=== PATIENT | female | born 1945 | race Caucasian/White ===

== ENCOUNTER 2019-07-20 08:50 | Outpatient (CLI) | payer MEDICARE, MEDICAID ==
[~2019-07-20] VITALS: Ht 157 cm; Wt 69.7 kg
[2019-07-20] MEDS ORDERED: HYDR-3820 PO (09:07)
[2019-07-20] MEDS ORDERED: MELO15TA39 PO (09:07)
[2019-07-20] MEDS ORDERED: CHOL200025 PO (09:07)
[2019-07-20] MEDS ORDERED: MONT10TA24 PO (09:07)
[2019-07-20] MEDS ORDERED: TRIA1CAP4 PO (09:07)
[2019-07-20] MEDS ORDERED: ATOR20TA66 PO (09:07)
[2019-07-20 09:11] VITALS: BP 111/58
[2019-07-20 09:49] LABS: BILIRUBIN,URINE NEGATIVE (NEGATIVE); CLARITY,URINE CLEAR; COLOR,URINE YELLOW; GLUCOSE, URINE (UA) NEGATIVE (NEGATIVE); KETONES,URINE NEGATIVE (NEGATIVE); LEUKOCYTE ESTERASE ,URINE NEGATIVE (NEGATIVE); NITRITE,URINE NEGATIVE (NEGATIVE); PROTEIN,URINE NEGATIVE (NEGATIVE)
[2019-07-20 09:51] LABS: BASOPHILS # (AUTO) 0.1 10^3/uL (0.0-0.1); BASOPHILS % (AUTO) 1 % (0-10); EOSINOPHILS # (AUTO) 0.1 10^3/uL (0.0-0.3); EOSINOPHILS % (AUTO) 2 % (0-10); HEMATOCRIT 41 % (35-52); HEMOGLOBIN 13.2 G/DL (11.5-16.0); LYMPHOCYTES # (AUTO) 2.1 X 10^3 (1.0-4.0); LYMPHOCYTES % (AUTO) 34 % (12-44); MEAN CORPUSCULAR HEMOGLOBIN 30 PG (25-34); MEAN CORPUSCULAR HGB CONC 32 G/DL (32-36); MEAN CORPUSCULAR VOLUME 93 FL (80-99); MEAN PLATELET VOLUME 9.2 FL (7.4-10.4); MONOCYTES # (AUTO) 0.4 X 10^3 (0.0-1.0); MONOCYTES % (AUTO) 7 % (0-12); NEUTROPHILS # (AUTO) 3.6 X 10^3 (1.8-7.8); NEUTROPHILS % (AUTO) 57 % (42-75); PLATELET COUNT 191 10^3/uL (130-400); RED CELL DISTRIBUTION WIDTH 12.3 % (10.0-14.5); WHITE BLOOD COUNT 6.3 10^3/uL (4.3-11.0)
[2019-07-20 10:00] LABS: BACTERIA,URINE NEGATIVE /HPF; SQUAMOUS EPITHELIAL CELL,UR RARE /HPF
[2019-07-20 10:03] LABS: INR 0.9 (0.8-1.4); PROTHROMBIN TIME PATIENT 12.5 SEC (12.2-14.7)
[2019-07-20 10:08] LABS: CALCIUM 9.2 MG/DL (8.5-10.1); CREATININE SERUM 1.05 MG/DL (0.60-1.30); POTASSIUM 4.2 MMOL/L (3.6-5.0)
--- NOTE | 2019-07-20 11:20 | Diagnostic Imaging Report ---
INDICATION: Preoperative evaluation for knee replacement. COMPARISON: None FINDINGS: Frontal and lateral views of the chest demonstrate normal heart size and pulmonary vascularity. The lungs are clear. There are no signs of infiltrate, pleural effusions or pneumothoraces. The visualized osseous structures show no acute abnormalities. IMPRESSION: 1. No acute process. No signs of infiltrates, effusions or pneumothoraces. Dictated by: Dictated on workstation # [id number]
== END 2019-07-20 13:26 | disposition home or self-care (01) ==
LOC: PREOP 08:50
PROVIDERS: ATTEND Orthopaedic Surgery
DX: Z01.810 Encounter for preprocedural cardiovascular examination (principal); Z01.811 Encounter for preprocedural respiratory examination; Z01.812 Encounter for preprocedural laboratory examination; Z11.2 Encounter for screening for other bacterial diseases; M17.11 Unilateral primary osteoarthritis, right knee; M79.661 Pain in right lower leg; I10 Essential (primary) hypertension; R53.83 Other fatigue
CPT/HCPCS: 36415; 71046; 80048; 81000; 85025; 85610; 86850; 86900; 86901; 87081; 93005

== ENCOUNTER 2019-08-02 08:39 | Inpatient (IN) | payer MEDICARE, MEDICAID ==
[2019-08-02] VITALS (10 sets, daily range): BP systolic 96–138; BP diastolic 51–71
[~2019-08-02] VITALS: Ht 157 cm; Wt 69.7 kg
[~2019-08-02 08:39] MED LIST: ATOR20TA66 PO; CHOL200025 PO; HYDR-3820 PO; MELO15TA39 PO; MONT10TA24 PO; TRIA1CAP4 PO
[2019-08-02] MEDS ORDERED: GABAPENTIN 600 MG (NEURONTIN) TAB PO ONE (08:45)
[2019-08-02] MEDS ORDERED: ONDANSETRON 4 MG/2 ML (SDV) Z0FRAN IVP ONE (08:45)
[2019-08-02] MEDS ORDERED: DEXAMETHASONE 4 MG/ML SDV (DECADRON) IV ONE (08:45)
[2019-08-02] MEDS ORDERED: CELECOXIB 100 MG (CeleBREX) CAP PO ONE (08:45)
[2019-08-02] MEDS ORDERED: ceFAZolin 2 GM/50 ML NS 50 ML IV ONE (08:45)
[2019-08-02] MEDS: LACTATED RINGERS 1,000 ML IV PRN ×3 (09:29→15:25)
[2019-08-02] MEDS ORDERED: FAMOTIDINE 20MG/2ML IV (PEPCID) IV ONE (09:30)
[2019-08-02] MEDS ORDERED: INTRA-ARTICULAR IU ONE ×4 (10:30)
[2019-08-02] MEDS ORDERED: GENTAMICIN 40 MG/ML 2 ML INJ SDV ONE (10:44)
[2019-08-02] MEDS ORDERED: NEO/POLY/BAC (NEOSPORIN) OINT 15 GM TUBE ONE (10:44)
[2019-08-02] MEDS ORDERED: MIDAZOLAM 2 MG/2 ML (VERSED) VIAL ONE (12:01)
[2019-08-02] MEDS ORDERED: fentaNYL INJECTION 100 MCG/2 ML AMP ONE (12:01)
[2019-08-02] MEDS ORDERED: BUPIVACAINE 0.5% 30 ML (SENSORCAINE) VIAL ONE (12:22)
--- NOTE | 2019-08-02 12:36 | Progress Note-Pre Operative ---
Pre-Operative Progress Note H&P Reviewed The H&P was reviewed, patient examined and no changes noted. Date Seen by Provider: Aug 02, 2019 Time Seen by Provider: 12:35 Date H&P Reviewed: Aug 02, 2019 Time H&P Reviewed: 12:35 Pre-Operative Diagnosis: Primary Osteoarthritis Right Knee LENKA GARCIA DO Aug 02, 2019 12:36
[2019-08-02] MEDS ORDERED: ONDANSETRON 4 MG (ZOFRAN) ORAL DISSOLVE TAB PO PRN (13:00)
[2019-08-02] MEDS ORDERED: ceFAZolin 2 GM/50 ML NS 50 ML IV SCH (13:00)
[2019-08-02] MEDS ORDERED: diphenhydrAMINE 50 MG/ML INJ (BENADRYL) IV PRN (13:00)
[2019-08-02] MEDS ORDERED: BISACODYL 10 MG SUPP (DULCOLAX) PR PRN (13:00)
[2019-08-02] MEDS ORDERED: MILK OF MAGNESIA 400 MG/5 ML 30 ML UDC PO PRN (13:00)
[2019-08-02] MEDS ORDERED: morphine INJ 4 MG/ML 1 ML (VIAL/SYRINGE) IV PRN (13:00)
[2019-08-02] MEDS ORDERED: BACLOFEN 10 MG (LIORESAL) TAB PO PRN (13:00)
[2019-08-02] MEDS ORDERED: LIDOCAINE PF 2% 5 ML (XYLOCAINE) VIAL ONE (13:46)
[2019-08-02] MEDS ORDERED: proPOfol 200 MG/20 ML (DIPRIVAN) VIAL IV ONE (13:46)
[2019-08-02] MEDS ORDERED: SEVOFLURANE (ULTANE) 15 ML INHAL SOLN ONE ×8 (13:46→14:19)
[2019-08-02] MEDS ORDERED: TRANEXAMIC ACID 100 MG/ML 10 ML INJECTION IV ONE (13:46)
[2019-08-02] MEDS ORDERED: ONDANSETRON 4 MG/2 ML (SDV) Z0FRAN ONE (13:46)
[2019-08-02] MEDS ORDERED: PROMETHAZINE INJ 25 MG/ML (PHENERGAN) AMP IVP ONE (15:00)
[2019-08-02] MEDS ORDERED: ONDANSETRON 4 MG/2 ML (SDV) Z0FRAN IVP PRN (15:00)
[2019-08-02] MEDS ORDERED: morphine INJ 10 MG/ML 1ML (SYR OR VIAL) IVP ONE (15:00)
[2019-08-02] MEDS ORDERED: morphine INJ 10 MG/ML 1ML (SYR OR VIAL) ONE (15:05)
--- NOTE | 2019-08-02 15:14 | Progress Note-Post Operative ---
Post-Operative Progess Note Surgeon (s)/Pattern Data Operator (s) Surgeon LENKA GARCIA DO Pattern Data Operator: Etienne Moralez [facility] Pre-Operative Diagnosis Primary Osteoarthritis Right Knee Post-Operative Diagnosis same Procedure & Operative Findings Date of Procedure 08/02/19 Procedure Performed/Findings right total knee arthroplasty Anesthesia Type General with femoral and genicular block Estimated Blood Loss Estimated blood loss (mL): 150 ml Specimens/Packing Specimens Removed none LENKA GARCIA DO Aug 02, 2019 15:14
--- NOTE | 2019-08-02 15:28 | Diagnostic Imaging Report ---
INDICATION: Osteoarthritis. Two views were obtained. FINDINGS: There are postsurgical changes of right knee arthroplasty. Hardware is in satisfactory position. There is no loosening. Soft tissues are unremarkable. IMPRESSION: Stable right knee arthroplasty. Dictated by: Dictated on workstation # [id number]
--- NOTE | 2019-08-02 16:30 | OPERATIVE REPORT ---
DATE OF SERVICE: 08/02/2019 PREOPERATIVE DIAGNOSIS: Primary osteoarthritis, right knee. POSTOPERATIVE DIAGNOSIS: Primary osteoarthritis, right knee. PROCEDURE: Right total knee arthroplasty. SURGEON: Lenka Garcia DO SOCCER PLAYER: [place]. SURGICAL BANQUET COORDINATOR DUTIES: Etienne Moralez, surgical clinical reviewer was utilized throughout the entire procedure for patient positioning, soft tissue retraction, assistance in placement of total knee implants, wound closure, dressing application and the patient transfer. ANESTHESIA: General with femoral and genicular nerve block. ESTIMATED BLOOD LOSS: 150 mL. OPERATIVE TIME: Please see anesthesia report. COMPLICATIONS: None. INDICATIONS AND FINDINGS: The patient is a 74-year-old female seen with chief complaint of persistent catching, popping, locking and sensation in the right knee give way. X-rays demonstrated mild narrowing in the medial compartment of the right knee. 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 The patient was taken to surgery where total knee arthroplasty was performed on the right without complication utilizing the [employer] total knee system with a press fit 62.5 mm femoral component, a 67 mm cemented fixed I-beam tibial component, a 10 mm anterior stabilized tibial bearing implant with a 31 mm 3-pronged all polyethylene cemented thin patellar component. PALACOS bone cement was utilized. PROCEDURE IN DETAIL: The patient was seen by anesthesia preoperatively and under ultrasound guidance, a femoral genicular nerve block was performed on the right to decrease postoperative pain and decrease amount of medication required during the surgical procedure. The patient was transferred to the operating room where general inhalation anesthetic was administered. A well-padded pneumatic tourniquet was placed about the upper aspect of the right thigh. A ChloraPrep and sterile drape of the right lower extremity was performed. The right leg was elevated, exsanguinated and the tourniquet was inflated to 300 mmHg pressure. An anterior longitudinal midline incision was made over the anterior surface of the knee. The incision was deepened through a medial parapatellar incision. The patella was subluxed laterally. Osteophytes from the distal femur were removed with a bone rongeur. A balloon pilot hole was then drilled in the distal femur and intramedullary cassandra was inserted utilizing a 5-degree valgus cutting angle, a distal femoral cutting guide was assembled and a distal femoral osteotomy was completed. The distal femur was sized to a 62.5 mm femoral component, a 4-way cutting block was assembled. Anterior, posterior and chamfer cuts of the distal femur were made. The tibia was subluxed anteriorly. Remnants of the medial and lateral menisci as well as the anterior cruciate ligament were excised. A balloon pilot hole was then drilled in the proximal tibia. An intramedullary cassandra was inserted measuring the exposed bone over the proximal medial tibia. A proximal tibial cutting guide was assembled and a proximal tibial osteotomy was completed. Additional subperiosteal dissection was performed over the proximal medial tibia allowing full extension of the knee with a 10 mm gap sizer with no evidence of varus valgus instability. The posterior aspect of patella was resected through a cutting guide and drilled through a drill guide. Provisional components were inserted. The knee was cycled through a range of motion. Rotation of the tibial component was noted and marked on the proximal tibia. The proximal tibia was then broached to accept the I-beam stem portion of the implant. The bony surfaces were irrigated extensively with normal saline solution. PALACOS bone cement was then mixed. This was pressurized in the proximal tibia. The tibial component was cemented in place. The femoral component was press fit in place. The knee was taken into full extension with a provisional tibial bearing implant. Patellar component was cemented in place and held with a clamp. Excessive cement was removed. The tourniquet was released. Hemostasis was obtained with electrocautery. The knee was additionally irrigated with normal saline solution. The knee was tested in full flexion and midrange flexion with no instability. The provisional tibial bearing implant was removed and a 10 mm anterior stabilized tibial bearing implant was inserted and locked anteriorly with a locking bar. The knee again was irrigated with normal saline solution. The knee was placed in 90 degrees of flexion. The medial retinaculum was closed with multiple interrupted hokcem-jv-ggwuo sutures of #1 Vicryl reinforced with a running suture of #1 Stratafix. The subcutaneous tissues were closed in layers with 0 and 2-0 Vicryl suture. The skin was closed with stainless steel guera and Adaptic Neosporin bulky dressing was placed about the right knee. The patient was awakened and was transported to postop recovery with anesthesia personnel present in satisfactory condition. Job ID: [id number] DocumentID: [id number] Dictated Date: 08/02/2019 16:05:07 Motion Picture Director Date: 08/02/2019 16:29:23 Dictated By: LENKA GARCIA DO
[2019-08-02] MEDS ORDERED: MAGNESIUM CITRATE 300 ML BTL PO NR (16:58)
--- NOTE | 2019-08-02 17:17 | Physical Therapy Evaluation ---
PT Evaluation-General Medical Diagnosis Admission Date Aug 02, 2019 at 08:39 Medical Diagnosis: right TKA Onset Date: Aug 02, 2019 Therapy Diagnosis Therapy Diagnosis: impaired mobility, strength, endurance, ROM Precautions Precautions/Isolations: Standard Precautions Weight Bear Status Right Lower Extremity: Right Non Weight Bearing Left Lower Extremity: Left Full Weight Bearing No weight bearing until 0800 on POD 1 after femoral nerve block on affected Referral Physician: Randolph Emerson DO Reason for Referral: Evaluation/Treatment Medical History Pertinent Medical History: OA Reviewed History: Yes Social History Home: Single Level Current Living Status: Other Family Entry Into Home: Stairs With Railing PT Steps Into Home: 2 Prior Prior Level of Function SCALE: Activities may be completed with or without assistive devices. 5-Jvxpavtpae-oeyyvhe completes the activity by him/herself with no assistance from a helper. 5-Set-up or Clean-up Assistance-helper sets up or cleans up; patient completes activity. [place] assists only prior to or following the activity. 4-Supervision or Touching Assistance-helper provides verbal cues and/or touching/steadying and/or contact guard assistance as patient completes activity. Assistance may be provided throughout the activity or intermittently. 3-Partial/Moderate Assistance-helper does LESS THAN HALF the effort. [place] lifts, holds or supports trunk or limbs, but provides less than half the effort. 2-Substantial/Maximal Assistance-helper does MORE THAN HALF the effort. [place] lifts or holds trunk or limbs and provides more than half the effort. 0-Mboyyyfiq-dfutlg does ALL the effort. Patient does none of the effort to complete the activity. Or, the assistance of 2 or more helpers is required for the patient to complete the activity. If activity was not attempted, code reason: 7-Patient Refused. 9-Not Applicable-not attempted and the patient did not perform the activity before the current illness, exacerbation or injury. 10-Not Attempted due to Environmental Limitations-(lack of equipment, weather restraints, etc.). 88-Not Attempted due to Medical Conditions or Safety Concerns. Bed Mobility: 6 Transfers (B,C,W/C): 6 Gait: 6 Stairs: 6 Indoor Mobility (Ambulation): Independent Stairs: Independent PT Evaluation-Current Subjective Patient in bed pre tx, agrees to PT, has 5/10 pain in right knee. Patient is nauseated and has an emesis basin but still agrees to PT. Evaluation order is for tomorrow but will be doing it today per direct doctor request from Dr. Emerson. Pt/Family Goals to be independent at home Objective Patient Orientation: Person, Place, Situation Attachments: SCD's, Oxygen, Polar Pack ROM/Strength ROM Lower Extremities right knee flexion 65 degrees, extension +5 degrees Sensory Hearing: Functional Sensation Right Lower Extremit: Intact Sensation Left Lower Extremity: Intact Transfers Roll Left to Right (QC): 6 Sit to Lying (QC): 3 Lying to Sitting/Side of Bed(Q: 3 Sit to Stand (QC): 4 Min assist for supine <-> sit to help right leg into and out of bed Gait Gait Assistive Device: FWW Comments/Gait Description Patient was able to sidestep a few steps toward the head of the bed, her right knee may. Balance Sitting Static: Normal Sitting Dynamic: Normal Standing Static: Poor Standing Dynamic: Poor Assessment/Needs Patient has impaired mobility, strength, endurance, ROM. Patient cannot bear weigh through her right knee, may. Rehab Potential: Fair PT Long-Term Goals Aerial Planting And Cultivation Manager Goals PT Aerial Planting And Cultivation Manager Goals Time Frame: Aug 09, 2019 Roll Left & Right (QC): 6 Sit to Lying (QC): 6 Lying-Sitting on Side/Bed(QC): 6 Sit to Stand (QC): 6 Chair/Oqn-hf-Djvyt Xfer(QC): 6 Walk 10 feet (QC): 6 Walk 50ft with 2 Turns (QC): 6 PT Plan Problem List Problem List: Activity Tolerance, Functional Strength, Safety, Balance, Gait, Transfer, Bed Mobility, ROM Treatment/Plan Treatment Plan: Continue Plan of Care Treatment Plan: Bed Mobility, Education, Functional Activity Klaudia, Functional Strength, Gait, Safety, Therapeutic Exercise, Transfers Treatment Duration: Aug 09, 2019 Frequency: 11 times per week Estimated Hrs Per Day: .25 hour per day Patient and/or Family Agrees t: Yes Safety Risks/Education Patient Education: Gait Training, Transfer Techniques, Correct Positioning, Safety Issues Teaching Recipient: Patient Teaching Methods: Demonstration, Discussion Response to Teaching: Reinforcement Needed Discharge Recommendations Plan Patient will perform bed mobility and transfer training, balance and endurance training, functional strengthening, stair training, gait training, and education, to improve functional mobility and independence at home. Therapy Discharge Recommendati: Home & Family Time/GCodes Time In: 1650 Time Out: 1701 Total Billed Treatment Time: 10 Total Billed Treatment 1 visit EVL JESSICA BOONE PT Aug 02, 2019 17:17
[2019-08-02] MEDS: D5 1/2 NS 1000 ML IV SOLUTION 1,000 ML IV SCH (18:04)
[2019-08-02] MEDS: GABAPENTIN 100 MG (NEURONTIN) CAP PO SCH ×2 (18:04→23:55)
[2019-08-02] MEDS: ACETAMINOPHEN 500 MG TAB (TYLENOL) PO SCH ×2 (18:09→23:55)
[2019-08-02] MEDS: ceFAZolin 2 GM/50 ML NS 50 ML IV SCH (20:18)
[2019-08-02] MEDS: SENNA W/DOCUSATE (SENOKOT S) TABLET PO SCH (20:18)
[2019-08-02] MEDS: ONDANSETRON 4 MG/2 ML (SDV) Z0FRAN IV PRN (21:41)
--- NOTE | 2019-08-02 22:35 | NUR ---
Pt has not voided since 1500. Pt is in no discomfort and feels no urge to void. Bladder scan showing 360 mL. NAVA Clifton notified about the situation. Ordered to straight cath if scan if scan is greater than 500 mL. Will continue to monitor.
[2019-08-03 00:14] VITALS: BP 103/57
[2019-08-03 04:00] VITALS: BP 97/54
[2019-08-03] MEDS: ceFAZolin 2 GM/50 ML NS 50 ML IV SCH (04:18)
[2019-08-03 05:20] LABS: HEMOGLOBIN 11.1 G/DL (11.5-16.0); RED CELL DISTRIBUTION WIDTH 12.1 % (10.0-14.5); WHITE BLOOD COUNT 11.2 10^3/uL (4.3-11.0)
[2019-08-03 05:50] LABS: CALCIUM 8.1 MG/DL (8.5-10.1); CREATININE SERUM 1.31 MG/DL (0.60-1.30); POTASSIUM 4.4 MMOL/L (3.6-5.0)
[2019-08-03] MEDS: GABAPENTIN 100 MG (NEURONTIN) CAP PO SCH ×3 (06:20→20:23)
[2019-08-03] MEDS: ACETAMINOPHEN 500 MG TAB (TYLENOL) PO SCH ×4 (06:20→23:44)
--- NOTE | 2019-08-03 06:41 | Progress Note ---
Subjective Date Seen by a Provider: Aug 03, 2019 Time Seen by a Provider: 06:40 Subjective/Events-last exam POD 1 s/p right TKA, doing well, no complaints. Objective Exam Vital Signs Date Time Temp Pulse Resp B/P (MAP) Pulse Ox O2 Delivery O2 Flow Rate FiO2 08/03/19 04:00 36.3 74 18 97/54 (68) 95 Room Air 08/03/19 00:14 36.5 64 18 103/57 (72) 95 Nasal Cannula 2.50 08/02/19 20:42 Nasal Cannula 2.00 08/02/19 20:00 36.0 69 16 115/57 (76) 98 Nasal Cannula 2.50 08/02/19 19:29 Nasal Cannula 3.00 08/02/19 16:00 36.6 76 18 102/61 (75) 96 Nasal Cannula 3.00 08/02/19 15:55 Nasal Cannula 3 08/02/19 15:55 36.3 20 96/51 (66) 96 Nasal Cannula 3 08/02/19 15:45 Nasal Cannula 3 08/02/19 15:40 20 96/51 (66) 95 Nasal Cannula 3 08/02/19 15:30 OxyMask 4 08/02/19 15:30 20 100/54 (69) 94 OxyMask 4 08/02/19 15:20 20 100/56 (71) 96 OxyMask 8 08/02/19 15:15 OxyMask 8 08/02/19 15:10 20 121/63 (82) 97 OxyMask 8 08/02/19 15:00 20 116/61 (79) 95 OxyMask 8 08/02/19 15:00 OxyMask 8 08/02/19 14:54 OxyMask 8 08/02/19 14:54 36.3 20 138/71 (93) 97 OxyMask 8 08/02/19 08:40 36.0 78 18 121/61 97 Room Air I & O 08/03/19 07:00 Intake Total 2068 ml Balance 2068 ml Capillary Refill : Less Than 3 SecondsNONE General Appearance: No Apparent Distress Extremity: Normal Capillary Refill, Normal Inspection, No Calf Tenderness Neurologic/Psychiatric: Alert, Oriented x3, No Motor/Sensory Deficits, Normal Mood/Affect, criminal justice faculty II-XII Norm as Tested Skin: Normal Color, Warm/Dry (dressing right knee CDI) Results Lab Laboratory Tests 08/03/19 04:50: White Blood Count 11.2H, Red Blood Count 3.68L, Hemoglobin 11.1L, Hematocrit 35, Mean Corpuscular Volume 95, Mean Corpuscular Hemoglobin 30, Mean Corpuscular Hemoglobin Concent 32, Red Cell Distribution Width 12.1, Platelet Count 195, Mean Platelet Volume 9.0, Sodium Level 137, Potassium Level 4.4, Chloride Level 103, Carbon Dioxide Level 21, Anion Gap 13, Blood Urea Nitrogen 24H, Creatinine 1.31H, Estimat Glomerular Filtration Rate 40, BUN/Creatinine Ratio 18, Glucose Level 129H, Calcium Level 8.1L Assessment/Plan Assessment/Plan Assess & Plan/Chief Complaint A: s/p right TKA P: Start PT and dressing change, DC meloxicam due to creatinine Clinical Quality Measures DVT/VTE Risk/Contraindication: Risk Factor Score Per Nursin RFS Level Per Nursing on Admit: 4+=Very High ZAHIDA MAIN APRN Aug 03, 2019 06:41
[2019-08-03] MEDS: D5 1/2 NS 1000 ML IV SOLUTION 1,000 ML IV SCH ×3 (07:31→20:24)
[2019-08-03] MEDS: MONTELUKAST 10 MG (SINGULAIR) TAB PO SCH (07:31)
[2019-08-03] MEDS: TRIAMTERENE/HCTZ 75-50 (MAXZIDE,DYAZIDE) TABLET PO SCH (07:38)
[2019-08-03 08:00] VITALS: BP 103/54
[2019-08-03] MEDS ORDERED: MELOXICAM 7.5 MG (MOBIC) TABLET PO SCH (09:00)
--- NOTE | 2019-08-03 09:34 | NUR ---
O2 SAT 92 PERCENT ON ROOM AIR, O2 OFF, WILL CONTINUE TO MONITOR
--- NOTE | 2019-08-03 09:37 | Physical Therapy Daily Note ---
PT Daily Note-Current Subjective Patient agreeable to therapy at this time. Pain Numeric Pain Scale: 2 Location: Right Location Body Site: Knee Appearance Patient in bed with call light and bedside table within reach. CPM is on, -. Mental Status Patient Orientation: Person, Place, Time, Situation Attachments: SCD's, Polar Pack, IV Transfers SCALE: Activities may be completed with or without assistive devices. 9-Bivpktymbv-zfilrzp completes the activity by him/herself with no assistance from a helper. 5-Set-up or Clean-up Assistance-helper sets up or cleans up; patient completes activity. [place] assists only prior to or following the activity. 4-Supervision or Touching Assistance-helper provides verbal cues and/or touching/steadying and/or contact guard assistance as patient completes activity. Assistance may be provided throughout the activity or intermittently. 3-Partial/Moderate Assistance-helper does LESS THAN HALF the effort. [place] lifts, holds or supports trunk or limbs, but provides less than half the effort. 2-Substantial/Maximal Assistance-helper does MORE THAN HALF the effort. [place] lifts or holds trunk or limbs and provides more than half the effort. 9-Zxsvktvkd-vzxmhu does ALL the effort. Patient does none of the effort to complete the activity. Or, the assistance of 2 or more helpers is required for the patient to complete the activity. If activity was not attempted, code reason: 7-Patient Refused. 9-Not Applicable-not attempted and the patient did not perform the activity before the current illness, exacerbation or injury. 10-Not Attempted due to Environmental Limitations-(lack of equipment, weather restraints, etc.). 88-Not Attempted due to Medical Conditions or Safety Concerns. Roll Left & Right (QC): 6 Sit to Lying (QC): 6 Lying to Sitting/Side of Bed(Q: 6 Sit to Stand (QC): 4 Chair/Usa-hu-Jtxvb Xfer(QC): 4 Weight Bearing Right Lower Extremity: Right Non Weight Bearing Left Lower Extremity: Left Full Weight Bearing No weight bearing until 0800 on POD 1 after femoral nerve block on affected Gait Training Does the Patient Walk?: Yes Distance: 20' Walk 10 feet (QC): 4 Gait Assistive Device: FWW CGA for safety. Patient unsteady during ambulation, patients knee buckled once during ambulation and patient able to recover herself. Wheelchair Training Does the Pt Use a Wheelchair?: No Exercises Supine Ex: Ankle pumps (10RLE), Quad Set (10RLE), Heel Slides (10RLE), Short Arc Quads (10RLE AAROM), Straight leg raise (10RLE AAROM) Treatments Exercises, ambulation, bed mobility. Assessment Current Status: Fair Progress Patient is able to actively perform all exercises except SAQ and SLR she needed assistance with the movement. Patient is unsteady during ambulation, her knee buckled once towards the end of ambulation and patient self recovered. Patient in bed post tx with nurse call, phone, tray, all needs met. CPM donned and set and adjusted to leg. PT Usp Goals Information Security Specialist Goals PT Usp Goals Time Frame: Aug 09, 2019 Roll Left & Right (QC): 6 Sit to Lying (QC): 6 Lying-Sitting on Side/Bed(QC): 6 Sit to Stand (QC): 6 Chair/Ccm-js-Ziowa Xfer(QC): 6 Walk 10 feet (QC): 6 Walk 50ft with 2 Turns (QC): 6 PT Plan Problem List Problem List: Activity Tolerance, Functional Strength, Safety, Balance, Gait, Transfer, Bed Mobility, ROM Treatment/Plan Treatment Plan: Continue Plan of Care Treatment Plan: Bed Mobility, Education, Functional Activity Klaudia, Functional Strength, Gait, Safety, Therapeutic Exercise, Transfers Treatment Duration: Aug 09, 2019 Frequency: 11 times per week Estimated Hrs Per Day: .25 hour per day Patient and/or Family Agrees t: Yes Safety Risks/Education Patient Education: Gait Training, Transfer Techniques, Correct Positioning, Safety Issues Teaching Recipient: Patient Teaching Methods: Demonstration, Discussion Response to Teaching: Reinforcement Needed Time/GCodes Time In: 908 Time Out: 931 Total Billed Treatment Time: 23 Total Billed Treatment 1 visit EX 13 GT 10 JESSICA VELASCO PT Aug 03, 2019 09:37
[2019-08-03] MEDS: HYDROcodone/APAP 10 MG/325 MG (LORTAB) TAB PO PRN ×2 (10:09→20:23)
--- NOTE | 2019-08-03 11:07 | Occupational Therapy Eval ---
OT Evaluation-General/PLF Medical Diagnosis Admission Date Aug 02, 2019 at 08:39 Medical Diagnosis: right TKA Onset Date: Aug 02, 2019 Therapy Diagnosis Therapy Diagnosis: impaired ADLs/functional mobility Precautions Precautions/Isolations: Fall Prevention, Standard Precautions Referral Physician: Etienne Moralez Referral Reason: Evaluation/Treatment Medical History Pertinent Medical History: OA Current History Pt had R TKA on 08/02/2019. Reviewed History: Yes Social History Home: Single Level Current Living Status: Other Family Entry Into Home: Stairs With Railing Steps Into Home: 2 ADL-Prior Level of Function SCALE: Activities may be completed with or without assistive devices. 7-Avmvvevyle-rsnwjry completes the activity by him/herself with no assistance from a helper. 5-Set-up or Clean-up Assistance-helper sets up or cleans up; patient completes activity. [place] assists only prior to or following the activity. 4-Supervision or Touching Assistance-helper provides verbal cues and/or touching/steadying and/or contact guard assistance as patient completes activity. Assistance may be provided throughout the activity or intermittently. 3-Partial/Moderate Assistance-helper does LESS THAN HALF the effort. [place] lif ts, holds or supports trunk or limbs, but provides less than half the effort. 2-Substantial/Maximal Assistance-helper does MORE THAN HALF the effort. [place] lifts or holds trunk or limbs and provides more than half the effort. 3-Ouuqcudka-npdukm does ALL the effort. Patient does none of the effort to complete the activity. Or, the assistance of 2 or more helpers is required for the patient to complete the activity. If activity was not attempted, code reason: 7-Patient Refused. 9-Not Applicable-not attempted and the patient did not perform the activity before the current illness, exacerbation or injury. 10-Not Attempted due to Environmental Limitations-(lack of equipment, weather restraints, etc.). 88-Not Attempted due to Medical Conditions or Safety Concerns. ADL PLOF Comments Pt reports being independent with all ADLs prior to surgery. She had some difficulty getting around due to her knee but she did not require assistance. Self Care: Independent Functional Cognition: Independent DME/Equipment: Tub/Shower OT Current Status Subjective Pt laying in bed at start of session, CPM on right LE. She agreed to OT evaluation this AM, and she did not verbalize pain rating this session. Mental Status/Objective Patient Orientation: Person, Place, Time, Situation Attachments: IV, SCD's, Other-See Comments (CPM) Current Glasses/Contacts: Yes Hearing Aids: No Dentures/Partials: Yes Hand Dominance: Right Upper Extremity ROM WFL Upper Extremity Coordination WFL, pt reports some shakiness in her UEs since her surgery saying "they do what they want" Upper Extremity Sensation Pt denies tingling/numbness in her arms, Upper Extremity Strength grossly 4/5 MMT ADL-Treatment Upper Body Dressing (QC): 3 (Pt able to doff gown, assist with donning gown due to IV lines and assist with tying.) Toileting Hygiene (QC): 4 (Pt able to complete cleaning post BM accident with SBA.) Other Treatments Pt laying in bed at start of session, provided information about PLOF and home set up. Pt reported having to use the restroom, stating she was unsure if she had already went. Pt had BM accident in bed. OT assisted pt with unhooking SCDs, polar pack, and CMP. Pt transferred supine to sit EOB with SBA, then transferred to BSC using FWW with CGA. Pt completed toileting and upper body dressing, then transferred back to bed. Pt required assistance sit to supine with RLE. Nursing present in order to change pt's dressing as OT cleaned up post ADLs. OT then assisted pt with donning polar pack and donning CPM. Post OT session, pt laying in bed, call light in reach and all needs met. Education OT Patient Education: Correct positioning, Energy conservation, Modified ADL techniques, Progress toward Goal/Update tx plan, Purpose of tx/functional activities, Transfer techniques Teaching Recipient: Patient Teaching Methods: Discussion Response to Teaching: Verbalize Understanding OT Wire [employer] Goals Jail Goals Time Frame: Aug 10, 2019 Eating (QC): 6 Oral Hygiene (QC): 6 Toileting Hygiene (QC): 6 Shower/Bathe Self (QC): 6 Upper Body Dressing (QC): 6 Lower Body Dressing (QC): 6 On/Off Footwear (QC): 6 1=Demonstrate adherence to instructed precautions during ADL tasks. 2=Patient will verbalize/demonstrate understanding of assistive devices/modifications for ADL. 3=Patient will improve strength/tolerance for activity to enable patient to perform ADL's. OT Education/Plan Problem List/Assessment Assessment: Decreased Activ Tolerance, Decreased UE Strength, Impaired I ADL's, Impaired Self-Care Skills Discharge Recommendations Plan/Recommendations: Continue POC Therapy Discharge Recommendati: Home & Family Equpiment Recommendations-D/C: Extended Bath Bench Treatment Plan/Plan of Care Treatment,Training & Education: Yes Patient would benefit from OT for education, treatment and training to promote independence in ADL's, mobility, safety and/or upper extremity function for ADL's. Plan of Care: ADL Retraining, Functional Mobility, UE Funct Exercise/Act Treatment Duration: Aug 10, 2019 Frequency: 5 times per week Estimated Hrs Per Day: .25 hour per day Agreement: Yes Rehab Potential: Good Time/GCodes Start Time: 10:23 Stop Time: 10:55 Total Time Billed (hr/min): 32 Billed Treatment Time 1, EVL (15'), ADL (17') SHY CASANOVA OT Aug 03, 2019 11:07
--- NOTE | 2019-08-03 11:49 | Anesthesia-General Post-Op ---
General Patient Condition Mental Status/LOC: Same as Preop Cardiovascular: Satisfactory Nausea/Vomiting: Absent Respiratory: Satisfactory Pain: Controlled Complications: Absent Post Op Complications Complications None Follow Up Care/Instructions Patient Instructions None needed. Anesthesia/Patient Condition Patient Condition Patient is doing well, no complaints, stable vital signs, no apparent adverse anesthesia problems. She is noticing the femoral nerve block starting to wear off, but her pain is well controlled with Rx. JAVAD ARENAS DO Aug 03, 2019 11:49
[2019-08-03 12:00] VITALS: BP 98/55
--- NOTE | 2019-08-03 15:16 | NUR ---
CM/SS visited with the patient for discharge planning. Plan: The patient will return home with home health and front wheeled walker. DME: The patient is not using a DME provider due to her having a credit card for [employer]. The patient is allotted money to buy equipment through a [employer]. The patient reports she will have her son pick one up at time of discharge. CM/SS called [employer] on and [place], [place] to verify this information. They verified that she could go to any [employer] and use the [employer] Care card and purchase the walker. Home Health: The patient was provided with a Patient Preference Form. She picked [facility] in [place], [place] CM/SS called and faxed over a referral for the patient. CM/SS will send Home Health Orders and discharge information when available.
--- NOTE | 2019-08-03 15:22 | Physical Therapy Daily Note ---
PT Daily Note-Current Subjective Pt. states she is ready to go home "they said tomorrow". Pt. tearful after rx and says she had hoped she would be doping better than this by now. Pt. states her leg still feels like a noodle and she isnt sure where its going. No c/o pain Pain Location: No Pain Reported Mental Status Patient Orientation: Normal For Age Attachments: SCD's, Polar Pack, IV Transfers SCALE: Activities may be completed with or without assistive devices. 0-Vullmbfrqz-kwxdkym completes the activity by him/herself with no assistance from a helper. 5-Set-up or Clean-up Assistance-helper sets up or cleans up; patient completes activity. [place] assists only prior to or following the activity. 4-Supervision or Touching Assistance-helper provides verbal cues and/or touching/steadying and/or contact guard assistance as patient completes activity. Assistance may be provided throughout the activity or intermittently. 3-Partial/Moderate Assistance-helper does LESS THAN HALF the effort. [place] lifts, holds or supports trunk or limbs, but provides less than half the effort. 2-Substantial/Maximal Assistance-helper does MORE THAN HALF the effort. [place] lifts or holds trunk or limbs and provides more than half the effort. 9-Inaaeozjr-oydddc does ALL the effort. Patient does none of the effort to complete the activity. Or, the assistance of 2 or more helpers is required for the patient to complete the activity. If activity was not attempted, code reason: 7-Patient Refused. 9-Not Applicable-not attempted and the patient did not perform the activity before the current illness, exacerbation or injury. 10-Not Attempted due to Environmental Limitations-(lack of equipment, weather restraints, etc.). 88-Not Attempted due to Medical Conditions or Safety Concerns. sup to sit mood I, sit to stand CGA Weight Bearing Right Lower Extremity: Right Non Weight Bearing Left Lower Extremity: Left Full Weight Bearing No weight bearing until 0800 on POD 1 after femoral nerve block on affected Gait Training Does the Patient Walk?: Yes Walk 10 feet (QC): 4 Walk 50 ft with 2 Turns(QC): 4 Gait Persons Needed: 1 Gait Assistive Device: FWW 125 ft, 25 ft CGA to min assist with some instability noted , instruction needed for UE wt bearing while wt bearing on RLE Exercises Supine Ex: Ankle pumps, Quad Set, Glut sets, Heel Slides, Short Arc Quads, Straight leg raise Supine Reps: 15 Seated Therapy Exercises: Ankle pumps, Sit to stand, Long arc quads, Hip flexion Seated Reps: 15 Treatments needs assist for full extension while sitting, near indep SLR has 10 degree lag, full ext in supine and 75 deg flexion Assessment Current Status: Good Progress up in chair after Rx with eckert at hand, polar pack insitu PT Nursing Home Goals Nursing Home Goals PT Painter Drum Goals Time Frame: Aug 09, 2019 Roll Left & Right (QC): 6 Sit to Lying (QC): 6 Lying-Sitting on Side/Bed(QC): 6 Sit to Stand (QC): 6 Chair/Qfq-zs-Sbcia Xfer(QC): 6 Walk 10 feet (QC): 6 Walk 50ft with 2 Turns (QC): 6 PT Plan Treatment/Plan Treatment Plan: Continue Plan of Care Treatment Plan: Bed Mobility, Education, Functional Activity Klaudia, Functional Strength, Gait, Safety, Therapeutic Exercise, Transfers Treatment Duration: Aug 09, 2019 Frequency: 11 times per week Estimated Hrs Per Day: .25 hour per day Patient and/or Family Agrees t: Yes Safety Risks/Education Patient Education: Gait Training, Transfer Techniques, Correct Positioning, Disease Process, Safety Issues Teaching Recipient: Patient Teaching Methods: Demonstration, Discussion Response to Teaching: Verbalize Understanding, Return Demonstration, Reinforcement Needed Time/GCodes Time In: 1445 Time Out: 1510 Total Billed Treatment Time: 25 Total Billed Treatment 1,EX12m,GT13m JOSUE HA AUGER MILL OPERATOR Aug 03, 2019 15:22
[2019-08-03] MEDS ORDERED: ENOXAPARIN 40 MG/0.4 ML (LOVENOX) SYR SC SCH (15:30)
[2019-08-03 16:00] VITALS: BP 108/55
[2019-08-03] MEDS: ASPIRIN E.C. 81 MG (ECOTRIN) TAB PO SCH (16:41)
[2019-08-03 20:00] VITALS: BP_SYST 101; BP_SYST 107; BP_DIAS 49; BP_DIAS 54
[2019-08-03] MEDS: SENNA W/DOCUSATE (SENOKOT S) TABLET PO SCH (20:23)
[2019-08-04 00:38] VITALS: BP 107/50
[2019-08-04 04:00] VITALS: BP 107/50
[2019-08-04 06:12] LABS: BASOPHILS % (AUTO) 0 % (0-10); EOSINOPHILS # (AUTO) 0.1 10^3/uL (0.0-0.3); EOSINOPHILS % (AUTO) 1 % (0-10); HEMATOCRIT 31 % (35-52); HEMOGLOBIN 9.9 G/DL (11.5-16.0); LYMPHOCYTES # (AUTO) 1.9 X 10^3 (1.0-4.0); LYMPHOCYTES % (AUTO) 25 % (12-44); MEAN CORPUSCULAR HEMOGLOBIN 30 PG (25-34); MEAN CORPUSCULAR HGB CONC 32 G/DL (32-36); MEAN CORPUSCULAR VOLUME 95 FL (80-99); MEAN PLATELET VOLUME 9.5 FL (7.4-10.4); MONOCYTES # (AUTO) 0.5 X 10^3 (0.0-1.0); MONOCYTES % (AUTO) 7 % (0-12); NEUTROPHILS # (AUTO) 4.9 X 10^3 (1.8-7.8); NEUTROPHILS % (AUTO) 66 % (42-75); PLATELET COUNT 152 10^3/uL (130-400); RED CELL DISTRIBUTION WIDTH 12.3 % (10.0-14.5); WHITE BLOOD COUNT 7.5 10^3/uL (4.3-11.0)
[2019-08-04] MEDS: GABAPENTIN 100 MG (NEURONTIN) CAP PO SCH (06:36)
[2019-08-04] MEDS: HYDROcodone/APAP 10 MG/325 MG (LORTAB) TAB PO PRN ×3 (06:36→13:56)
[2019-08-04] MEDS: ACETAMINOPHEN 500 MG TAB (TYLENOL) PO SCH ×2 (06:36→06:37)
[2019-08-04 06:51] LABS: ALANINE AMINOTRANSFERASE < 6 U/L (0-55); ALBUMIN 3.3 GM/DL (3.2-4.5); ALKALINE PHOSPHATASE 48 U/L (40-136); BILIRUBIN,TOTAL 0.3 MG/DL (0.1-1.0); BUN/CREATININE RATIO 23; CALCIUM 7.5 MG/DL (8.5-10.1); CARBON DIOXIDE 27 MMOL/L (21-32); CHLORIDE 101 MMOL/L (98-107); GFR ESTIMATED 44; GLUCOSE 82 MG/DL (70-105); POTASSIUM 4.1 MMOL/L (3.6-5.0); SODIUM 134 MMOL/L (135-145); TOTAL PROTEIN 5.5 GM/DL (6.4-8.2)
[2019-08-04 08:00] VITALS: BP 109/55
[2019-08-04] MEDS: MONTELUKAST 10 MG (SINGULAIR) TAB PO SCH (08:04)
[2019-08-04] MEDS: ASPIRIN E.C. 81 MG (ECOTRIN) TAB PO SCH (08:04)
[2019-08-04] MEDS: TRIAMTERENE/HCTZ 75-50 (MAXZIDE,DYAZIDE) TABLET PO SCH (08:05)
[2019-08-04] MEDS: D5 1/2 NS 1000 ML IV SOLUTION 1,000 ML IV SCH (08:08)
[2019-08-04] MEDS: ONDANSETRON 4 MG/2 ML (SDV) Z0FRAN IV PRN (08:15)
[2019-08-04] MEDS ORDERED: ALPRAZolam 0.5 MG (XANAX) TAB ONE (09:30)
--- NOTE | 2019-08-04 10:31 | Physical Therapy Daily Note ---
PT Daily Note-Current Subjective Patient is agreeable to therapy even though she is in pain at this time. Pain Numeric Pain Scale: 9 Location: Right Location Body Site: Knee Appearance Patient in bed with call light and bedside table within reach. CPM on 0/70. Mental Status Patient Orientation: Normal For Age Attachments: Polar Pack, IV Transfers SCALE: Activities may be completed with or without assistive devices. 1-Qwrblwqqrv-pocebsu completes the activity by him/herself with no assistance from a helper. 5-Set-up or Clean-up Assistance-helper sets up or cleans up; patient completes activity. [place] assists only prior to or following the activity. 4-Supervision or Touching Assistance-helper provides verbal cues and/or touching/steadying and/or contact guard assistance as patient completes activity. Assistance may be provided throughout the activity or intermittently. 3-Partial/Moderate Assistance-helper does LESS THAN HALF the effort. [place] lifts, holds or supports trunk or limbs, but provides less than half the effort. 2-Substantial/Maximal Assistance-helper does MORE THAN HALF the effort. [place] lifts or holds trunk or limbs and provides more than half the effort. 7-Jivzaytzk-ryzdkl does ALL the effort. Patient does none of the effort to complete the activity. Or, the assistance of 2 or more helpers is required for the patient to complete the activity. If activity was not attempted, code reason: 7-Patient Refused. 9-Not Applicable-not attempted and the patient did not perform the activity before the current illness, exacerbation or injury. 10-Not Attempted due to Environmental Limitations-(lack of equipment, weather restraints, etc.). 88-Not Attempted due to Medical Conditions or Safety Concerns. Roll Left & Right (QC): 6 Sit to Lying (QC): 6 Lying to Sitting/Side of Bed(Q: 6 Sit to Stand (QC): 4 Toilet Transfer (QC): 4 Patient IND with toileting hygiene. Weight Bearing Right Lower Extremity: Right Non Weight Bearing Left Lower Extremity: Left Full Weight Bearing No weight bearing until 0800 on POD 1 after femoral nerve block on affected Gait Training Does the Patient Walk?: Yes Distance: 120' Walk 10 feet (QC): 4 Walk 50 ft with 2 Turns(QC): 4 Gait Assistive Device: FWW CGA for safety. Wheelchair Training Does the Pt Use a Wheelchair?: No Exercises Supine Ex: Ankle pumps, Quad Set, Heel Slides, Short Arc Quads, Straight leg raise Supine Reps: 10 (RLE only) Treatments RLE exercises, bed mobility, transfers, ambulation. Assessment Current Status: Good Progress Patient is improving and is more steady than she was yesterday. Patient states her leg was a noodle yesterday and she could not bear much gunnar through her RLE. At this time patient was bearing increased weight on RLE. Patient in bed with CPM on . PT Half-Way Goals Half-Way Goals PT H[employer] Goals Time Frame: Aug 09, 2019 Roll Left & Right (QC): 6 Sit to Lying (QC): 6 Lying-Sitting on Side/Bed(QC): 6 Sit to Stand (QC): 6 Chair/Gvl-pj-Rfjbk Xfer(QC): 6 Walk 10 feet (QC): 6 Walk 50ft with 2 Turns (QC): 6 PT Plan Problem List Problem List: Activity Tolerance, Functional Strength, Safety, Balance, Gait, Transfer, Bed Mobility, ROM Treatment/Plan Treatment Plan: Continue Plan of Care Treatment Plan: Bed Mobility, Education, Functional Activity Klaudia, Functional Strength, Gait, Safety, Therapeutic Exercise, Transfers Treatment Duration: Aug 09, 2019 Frequency: 11 times per week Estimated Hrs Per Day: .25 hour per day Patient and/or Family Agrees t: Yes Safety Risks/Education Patient Education: Gait Training, Transfer Techniques Teaching Recipient: Patient Teaching Methods: Discussion Response to Teaching: Reinforcement Needed Time/GCodes Time In: 850 Time Out: 917 Total Billed Treatment Time: 27 Total Billed Treatment 1 visit EX 13 GT 14 URVASHI LE PT Aug 04, 2019 10:31
--- NOTE | 2019-08-04 11:25 | Occupational Ther Daily Note ---
OT Current Status-Daily Note Subjective Pt laying in bed with CPM on. She agreed to OT tx with ADLs. She did not verbailize pain rating during tx. Mental Status/Objective Patient Orientation: Normal For Age Attachments: IV, Polar Pack, SCD's, Other-See Comments (CPM) ADL-Treatment Therapy Code Descriptions/Definitions Functional [place] Measure: 0=Not Assessed/NA 4=Minimal Assistance 1=Total Assistance 5=Supervision or Setup 2=Maximal Assistance 6=Modified [place] 3=Moderate Assistance 7=Complete IndependenceSCALE: Activities may be completed with or without assistive devices. 7-Dyzgkhjsnn-ogrwjze completes the activity by him/herself with no assistance from a helper. 5-Set-up or Clean-up Assistance-helper sets up or cleans up; patient completes activity. [place] assists only prior to or following the activity. 4-Supervision or Touching Assistance-helper provides verbal cues and/or touching/steadying and/or contact guard assistance as patient completes activity. Assistance may be provided throughout the activity or intermittently. 3-Partial/Moderate Assistance-helper does LESS THAN HALF the effort. [place] lifts, holds or supports trunk or limbs, but provides less than half the effort. 2-Substantial/Maximal Assistance-helper does MORE THAN HALF the effort. [place] lifts or holds trunk or limbs and provides more than half the effort. 8-Mpydwzjjb-ecmxfe does ALL the effort. Patient does none of the effort to complete the activity. Or, the assistance of 2 or more helpers is required for the patient to complete the activity. If activity was not attempted, code reason: 7-Patient Refused. 9-Not Applicable-not attempted and the patient did not perform the activity before the current illness, exacerbation or injury. 10-Not Attempted due to Environmental Limitations-(lack of equipment, weather restraints, etc.). 88-Not Attempted due to Medical Conditions or Safety Concerns. Oral Hygiene (QC): 5 (set up/clean up assist at bed level. Pt also brushed her hair & wash her face with set up assist for task.) Other Treatment Pt laying in bed with CPM on RLE. She agreed to performing oral hygiene. OT set up task for pt, then assisted with clean up. OT handed pt wet washcloth and she was able to wash her face, then OT handed pt hair brush and pt completed task. Post OT session, pt laying in bed with CPM on, call light in reach and all needs met. Education OT Patient Education: Correct positioning, Energy conservation, Modified ADL techniques, Progress toward Goal/Update tx plan, Purpose of tx/functional activities Teaching Recipient: Patient Teaching Methods: Discussion Response to Teaching: Verbalize Understanding OT Recreation Director Goals Recreation Director Goals Time Frame: Aug 10, 2019 Eating (QC): 6 Oral Hygiene (QC): 6 Toileting Hygiene (QC): 6 Shower/Bathe Self (QC): 6 Upper Body Dressing (QC): 6 Lower Body Dressing (QC): 6 On/Off Footwear (QC): 6 1=Demonstrate adherence to instructed precautions during ADL tasks. 2=Patient will verbalize/demonstrate understanding of assistive devices/m odifications for ADL. 3=Patient will improve strength/tolerance for activity to enable patient to perform ADL's. OT Education/Plan Problem List/Assessment Assessment: Decreased Activ Tolerance, Impaired I ADL's, Impaired Self-Care Skills Discharge Recommendations Plan/Recommendations: Continue POC Treatment Plan/Plan of Care Treatment,Training & Education: Yes Patient would benefit from OT for education, treatment and training to promote independence in ADL's, mobility, safety and/or upper extremity function for ADL's. Plan of Care: ADL Retraining, Functional Mobility, UE Funct Exercise/Act Treatment Duration: Aug 10, 2019 Frequency: 5 times per week Estimated Hrs Per Day: .25 hour per day Agreement: Yes Rehab Potential: Good Time/GCodes Start Time: 11:00 Stop Time: 11:15 Total Time Billed (hr/min): 1 Billed Treatment Time 1, ADL SHY CASANOVA OT Aug 04, 2019 11:25
[2019-08-04 12:00] VITALS: BP 129/58
[2019-08-04] MEDS ORDERED: ASPI-983 PO (12:36)
[2019-08-04] MEDS ORDERED: TRM50T PO (12:36)
--- NOTE | 2019-08-04 12:39 | D/C HH Face to Face Order ---
D/C Face to Face Orders Reconcile Patient Problems Problems Reviewed?: Yes Instructions for Patient Via [facility], Patient Instructions/FollowUp: f/u 2 weeks Physician to follow Patient: Idania Discharge Diet for Home: No Restrictions Patient Problems: Primary OA right knee s/p right total knee arthroplasty Goals for Patient: independence with ADLs Patient Data-Allergies,Ht & Wt Patient Allergies: Coded Allergies: Sulfa (Sulfonamide Antibiotics) (Verified Allergy, Mild, HIVES, REDNESS, 07/20/19) Home Health Need/Face to Face Date of Face to Face: Aug 04, 2019 Clinical Findings: Generalized weakness and fatigue, Non or partial weight bearing, Unsteady gait I have seen Pt xsny-eq-[id number]: Yes Discharged To: Home Diagnosis/Conditions: Primary OA right knee s/p right total knee arthroplasty Problems/Diagnosis/Condition: (1) Osteoarthritis of right knee Patient is Homebound due to: [place] fall risk due to instabilty, Pain w/ambulation Homebound Status Due to the above stated illness, injury or surgical procedure (medical condition or diagnosis) and associated clinical findings, the patient is homebound because of his/her inability to leave home except with aid of a supportive device and/or person AND leaving the home requires a considerable and taxing effort or is medically contraindicated. Pt req the following assistanc: Cane, Walker Home Health Nursing Orders Home Health Services Order: Nursing Services, Physical Therapy-Evaluate & Treat physical therapy 5x/week x 2 weeks to assist with ambulation and treat ROM nursing to remove guera and apply steri strips in 7 days Home Health Infusion Therapy Line Start Date: Aug 02, 2019 Therapy Orders Therapy Orders: Physical Therapy Therapy Specific Orders: Eval assistive deivces, Gait training, Increase strength/endurance, Restore ROM Certify Stmt I certify that this patient is under my care and that I, a nurse practitioner or a physician; a entry level assistant manager working with me, had a face to face encounter that - meets the physician face to face encounter requirements with this patient as dated. ZAHIDA MAIN APRN Aug 04, 2019 12:39
--- NOTE | 2019-08-04 12:44 | Consultation - Hospitalist ---
HPI History of Present Illness: HPI/Chief Complaint Harriet Harrison is a 74-year-old female with past medical history of hypertension, hyperlipidemia, chronic kidney disease, osteoarthritis, who presented for a total knee arthroplasty. She underwent surgery with Dr. Emerson on 08/02. She reports that she has been doing well postoperatively. She currently denies any complaints or concerns. She denies any fevers or chills. She denies any chest pain or shortness of breath. She denies any abdominal pain, nausea, or vomiting. She has been eating and drinking well. She has been up and walking. Source: patient Exam Limitations: no limitations Date Seen 08/04/19 Attending Physician Randolph Emerson DO PCP No,Local Physician Referring Physician Date of Admission Aug 02, 2019 at 08:39 Home Medications & Allergies Home Medications Reviewed patient Home Medication Reconciliation performed by pharmacy medication reconciliations cryptologic technician and/or nursing. Patients Allergies have been reviewed. Allergies Allergies Coded Allergies Sulfa (Sulfonamide Antibiotics) (Verified Allergy, Mild, HIVES, REDNESS, 07/20/19) Past Aivorku-Sohqyu-Leqyxi Hx Past Med/Social Hx: Reviewed Nursing Past Med/Soc Hx Patient Social History Alcohol Use: Denies Use Recreational Drug Use: No Type Used: Cigarettes Physical Abuse Screen: No Sexual Abuse: No Recent Foreign Travel: No Contact w/other who traveled: No Recent Hopitalizations: No Recent Infectious Disease Expo: No Immunizations Up To Date Date of Pneumonia Vaccine: Mar 23, 2017 Date of Influenza Vaccine: Jun 17, 2019 Seasonal Allergies Seasonal Allergies: Yes Past Medical History Currently Using CPAP: No Currently Using BIPAP: No Sexually Transmitted Disease: No HIV/AIDS: No Gastrointestinal: Gastroesophageal Reflux, Chronic Diarrhea Musculoskeletal: Arthritis Loss of Vision: Denies Hearing Impairment: Denies Cancer: Uterine Did You Recieve Any Treatments: Yes What Type of Treatment Did You: Surgical Intervention History of Blood Disorders: No Adverse Reaction to Blood Baumann: No (N/A) Review of Systems Constitutional: no symptoms reported EENTM: no symptoms reported Respiratory: no symptoms reported Cardiovascular: no symptoms reported Gastrointestinal: no symptoms reported Genitourinary: no symptoms reported Musculoskeletal: no symptoms reported Skin: no symptoms reported Psychiatric/Neurological: No Symptoms Reported Physical Exam Physical Exam Vital Signs Vital Signs - First Documented 08/02/19 08:40 Temp 36.0 Pulse 78 Resp 18 B/P (MAP) 121/61 Pulse Ox 97 O2 Delivery Room Air Capillary Refill : Less Than 3 SecondsLess Than 3 Seconds Height, Weight, BMI Height: '" Weight: lbs. oz. kg; 28.27 BMI Method: General Appearance: No Apparent Distress, WD/WN Respiratory: Lungs Clear, Normal Breath Sounds, No Respiratory Distress Cardiovascular: Regular Rate, Rhythm, No Edema, No Murmur Gastrointestinal: Normal Bowel Sounds, Non Tender, Soft Extremity: Normal Capillary Refill, Normal Inspection, No Calf Tenderness Neurologic/Psychiatric: Alert, Oriented x3, No Motor/Sensory Deficits, Normal Mood/Affect, piano regulator II-XII Norm as Tested Skin: Normal Color, Warm/Dry (dressing right knee CDI) Results Results/Procedures Labs Laboratory Tests 08/03/19 04:50 08/04/19 05:27 Patient resulted labs reviewed. Assessment/Plan Assessment and Plan Assess & Plan/Chief Complaint Osteoarthritis Status post total knee arthroplasty continue management per orthopedic surgery service Continue incentive spirometer Continue bowel regimen Continue pain regimen PT/OT Acute kidney injury superimposed on chronic kidney disease Creatinine 1.3 yesterday, up from baseline 1 Improved to 1.2 today Continue IV fluids, continue to monitor Hypertension Hyperlipidemia Continue home meds DVT prophylaxis: Lovenox Diagnosis/Problems Diagnosis/Problems (1) Osteoarthritis of right knee Status: Chronic Qualifiers: Osteoarthritis type: primary Qualified Codes: M17.11 - Unilateral primary osteoarthritis, right knee (2) S/P total knee arthroplasty Status: Acute Qualifiers: Laterality: right Qualified Codes: Z96.651 - Presence of right artificial knee joint (3) Acute kidney injury superimposed on chronic kidney disease Status: Acute (4) HLD (hyperlipidemia) Status: Chronic (5) HTN (hypertension) Status: Chronic Qualifiers: Hypertension type: essential hypertension Qualified Codes: I10 - Essential (primary) hypertension Clinical Quality Measures DVT/VTE Risk/Contraindication: Risk Factor Score Per Nursin RFS Level Per Nursing on Admit: 4+=Very High MOY BARAHONA MD Aug 04, 2019 12:44
--- NOTE | 2019-08-04 12:45 | Discharge Summary ---
Discharge Summary Hospital Course Problems Reviewed?: Yes Problems/Dx: (1) Osteoarthritis of right knee Final Diagnosis: Primary Osteoarthritis right knee, s/p right TKA Hospital Course Date of Admission: Aug 02, 2019 at 08:39 Admission Diagnosis : Family Physician/Provider: Date of Discharge: 08/04/19 Discharge Diagnosis: Primary OA right knee s/p right TKA Hospital Course: The patient was admitted to the hospital following an uncomplicated right total knee arthroplasty. Post operatively she did well and was discharged to home with home healthcare on POD 2. Labs and Pending Lab Test: Laboratory Tests 08/04/19 05:27: White Blood Count 7.5, Red Blood Count 3.27L, Hemoglobin 9.9L, Hematocrit 31L, Mean Corpuscular Volume 95, Mean Corpuscular Hemoglobin 30, Mean Corpuscular Hemoglobin Concent 32, Red Cell Distribution Width 12.3, Platelet Count 152, Mean Platelet Volume 9.5, Neutrophils (%) (Auto) 66, Lymphocytes (%) (Auto) 25, Monocytes (%) (Auto) 7, Eosinophils (%) (Auto) 1, Basophils (%) (Auto) 0, Neutrophils # (Auto) 4.9, Lymphocytes # (Auto) 1.9, Monocytes # (Auto) 0.5, Eosinophils # (Auto) 0.1, Basophils # (Auto) 0.0, Sodium Level 134L, Potassium Level 4.1, Chloride Level 101, Carbon Dioxide Level 27, Anion Gap 6, Blood Urea Nitrogen 27H, Creatinine 1.20, Estimat Glomerular Filtration Rate 44, BUN/Creatinine Ratio 23, Glucose Level 82, Calcium Level 7.5L, Corrected Calcium 8.1L, Total Bilirubin 0.3, Aspartate Amino Transf (AST/SGOT) 14, Alanine Aminotransferase (ALT/SGPT) < 6, Alkaline Phosphatase 48, Total Protein 5.5L, Albumin 3.3 Home Meds Active Tramadol HCl 50 Mg Tablet 50 Mg PO TID PRN Aspirin EC (Aspirin) 81 Mg Tablet.dr 81 Mg PO DAILY 30 Days Reported Vitamin D3 (Cholecalciferol (Vitamin D3)) 2,000 Unit Tablet 2,000 Unit PO DAILY Atorvastatin Calcium 20 Mg Tablet 20 Mg PO DAILY Triamterene-Hctz 37.5-25 mg Cp (Triamterene/Hydrochlorothiazid) 1 Each Capsule 1 Each PO DAILY Montelukast Sodium 10 Mg Tablet 10 Mg PO DAILY Meloxicam 15 Mg Tablet 15 Mg PO DAILY Hydrocodon-Acetaminophn 10-325 (Hydrocodone/Acetaminophen) 1 Each Tablet 1 Tab PO BID Assessment & DC Instructions See Dr. Emerson's TKA DC instructions Activity as Tolerated: No Walking Assistive Device: Walker Elevate Extremity: Elevate Above Heart Driving Instructions: No Driving for 4 Weeks No Driving When on Pain Meds: Yes Incentive Spirometry: Every 2 Hours While Awake Avoid ALL Tobacco Products: Smoking of Any Kind Discharge Diet: No Restrictions Diet After 24 Hours: Resume Home Diet Return to The Hospital For: concerns Symptoms to Report to Physicia: Extremity Discoloration, Numbness/Tingling, Sw elling Increased, Fever Over 101 Degrees F If Any Problems/Questions/Issu: Contact Your Physician Skin/Wound Care Instructions Infection Signs and Symptoms: Increased Redness, Foul Odor of Wound, Increased Drainage, Increased Swelling, Temperature Above 101 F Bathing Instructions: Shower Operative Area Clean and Dry: Keep Incision Clean/Dry Stitches/Renée/Dermabond Dis: Care of Renée Ice Pack: Ice On and Off Site Discharge Summary Date of Admission Aug 02, 2019 at 08:39 Date of Discharge Discharge Date: Aug 04, 2019 Discharge Time: 1600 Clinical Quality Measures DVT/VTE Risk/Contraindication: Risk Factor Score Per Nursin RFS Level Per Nursing on Admit: 4+=Very High ZAHIDA MAIN APRN Aug 04, 2019 12:45
[2019-08-04 14:00] VITALS: BP 129/58
--- NOTE | 2019-08-04 14:00 | NUR ---
VÍCTOR LEMA demonstrates understanding of discharge instructions and accurately returns instructions upon questioning. Copy of Post-Discharge Instructions given to PT. VÍCTOR LEMA is able to manage continuing needs after discharge. Patients belongings returned to PT. Patient discharged from [facility] on 08/04/19 at 1400. VÍCTOR LEMA left floor via W/C, accompanied by STAFF AND FAMILY PER AUTO.
--- NOTE | 2019-08-04 16:57 | NUR ---
CM/SS finalized discharge. CM/SS contacted [facility] and sent over finalized Home Health orders. [place] verbalized they received the finalized discharge. No further information was needed. The patient discussed with this SS that she will have her son swing her by the [facility] before they get home so she will have the walker. No other needs at this time.
== END 2019-08-04 14:00 | disposition home health service (06) | DRG 470 ==
LOC: 4TH 08:39 → SURG 08:40 → 4TH 15:50
PROVIDERS: ADMIT Orthopaedic Surgery; ATTEND Orthopaedic Surgery
PROC: 0SRC0J9 Replacement of Right Knee Joint with Synthetic Substitute, Cemented, Open Approach (ICD-10-PCS; principal; 2019-08-02 13:14)
DX: M17.11 Unilateral primary osteoarthritis, right knee (principal); N17.9 Acute kidney failure, unspecified; M94.261 Chondromalacia, right knee; M71.21 Synovial cyst of popliteal space [Baker], right knee; F17.210 Nicotine dependence, cigarettes, uncomplicated; I12.9 Hypertensive chronic kidney disease with stage 1 through stage 4 chronic kidney disease, or unspecified chronic kidney disease; E78.5 Hyperlipidemia, unspecified; N18.9 Chronic kidney disease, unspecified; K21.9 Gastro-esophageal reflux disease without esophagitis; K52.9 Noninfective gastroenteritis and colitis, unspecified; Z85.42 Personal history of malignant neoplasm of other parts of uterus
CPT/HCPCS: 36415; 73560; 80048; 80053; 85025; 85027; 86850; 86900; 86901; 94664